=== PATIENT | female | born 1975 | race Caucasian/White ===

== ENCOUNTER → 2017-07-30 | Outpatient (CLI) | payer OTHER ==
--- NOTE | 2017-07-30 18:11 | Diagnostic Imaging Report ---
#[id number] - USBRELIMRT ULTRASOUND OF THE RIGHT BREAST : 07/30/2017 Comparison is made to exams dated: 03/10/2017 mammogram, 03/10/2017 ultrasound and 02/18/2017 mammogram - [facility]. Color flow and real-time ultrasound were performed on the right breast with scanning in the upper 1/2. -The palpable mass at 12 o'clock measures 2.5 x 2.0 x 2.2 cm which is increased in size. It also has layering debris that is mobile within it. -At 9 o'clock 3 cm from the nipple there is a septated cyst with debris measuring 0.6 x 0.4 x 0.6 cm. -At 9 o'clock 1 cm from the nipple there is a benign cyst measuring 1.1 x 0.7 x 0.9 cm. IMPRESSION: BENIGN Multiple cystic lesions as described above. The largest has layering debris that could represent infection or hemorrhage. An ultrasound guided cyst aspiration could be performed if clinically warranted on the basis of symptoms or pain. Nithin Perez Jr., D.O. cw/:07/30/2017 13:02:13 Drop Crew Laborer: YOSEF CASTILLO, [facility] letter sent: Normal Exam Ultrasound BI-RADS: 2 Benign
== END ==
LOC: US 10:11
PROVIDERS: ATTEND Internal Medicine
DX: N63.12 Unspecified lump in the right breast, upper inner quadrant (principal)